=== PATIENT | female | born 1965 | race Caucasian/White ===

== ENCOUNTER 2016-12-05 18:28 | Emergency (ER) | payer SELFPAY ==
[~2016-12-05] VITALS: Ht 167.6 cm; Wt 71.2 kg
--- NOTE | 2016-12-05 19:41 | PHYS DOC ---
Past Medical History Past Medical History: No Pertinent History Past Surgical History: Cholecystectomy, Alcohol Use: None Drug Use: None Adult General Chief Complaint Chief Complaint: MEDICATION REFILL [facility] Patient is a 51 year old female who presents with dizziness and paresthesias that were gradual in onset. She is about to run out of venlafaxine, so she is taking it and half doses or every other day for the past week or so. States she has not been able to see her primary care doctor due to insufficient funds to pay the co-pay for the clinic visit. She thinks she will be open see her doctor within the next week. She denies headache, vision changes, diplopia, chest pain , dyspnea, fever or chills, nausea or vomiting, diarrhea, dysuria, numbness, weakness. Review of Systems Review of Systems Constitutional: Denies fever or chills [] Eyes: Denies change in visual acuity, redness, or eye pain [] HENT: Denies nasal congestion or sore throat [] Respiratory: Denies cough or shortness of breath [] Cardiovascular: No additional information not addressed in HPI [] GI: Denies abdominal pain, nausea, vomiting, bloody stools or diarrhea [] : Denies dysuria or hematuria [] Musculoskeletal: Denies back pain or joint pain [] Integument: Denies rash or skin lesions [] Neurologic: Denies headache, focal weakness or sensory changes [] Endocrine: Denies polyuria or polydipsia [] Allergies Allergies Allergies Coded Allergies Type Severity Reaction Last Updated Verified No Known Drug Allergies 11/12/14 No Physical Exam Physical Exam Constitutional: Well developed, well nourished, no acute distress, non-toxic appearance. [] HENT: Normocephalic, atraumatic, bilateral external ears normal, oropharynx moist, no oral exudates, nose normal. [] Eyes: PERRLA, EOMI. [] Neck: Normal range of motion, supple. [] Cardiovascular:Heart rate regular rhythm [] Lungs & Thorax: Bilateral breath sounds clear to auscultation [] Abdomen: Bowel sounds normal, soft, no tenderness. [] Skin: Warm, dry, no erythema, no rash. [] Back: Normal range of motion. [] Extremities: No tenderness, ROM intact, no edema. [] Neurologic: Alert and oriented X 3, normal motor function, normal sensory function, no focal deficits noted, cranial nerves II through XII intact. [] Psychologic: Affect normal, judgement normal, mood normal. [] Current Patient Data Vital Signs Vital Signs Date Time Temp Pulse Resp B/P (MAP) Pulse Ox O2 Delivery O2 Flow Rate FiO2 12/05/16 20:10 96 16 111/72 (85) 95 Room Air 12/05/16 19:20 98.4 98.4 Course & Med Decision Making Course & Med Decision Making Pertinent Labs and Imaging studies reviewed. (See chart for details) Suspect withdrawal from SNRI. Prescription for Venlafaxine 100 mg twice a day for 14 tablets (7days) given. Encouraged her to follow-up with her primary care doctor for his. Return precautions given. She understands and agrees with plan. Dragon Disclaimer Dragon Disclaimer This electronic medical record was generated, in whole or in part, using a voice recognition dictation system. Departure Departure Impression: Primary Impression: Dizziness Disposition: 01 HOME, SELF-CARE Condition: STABLE Referrals: LOWELL LIU DO (PCP) Patient Instructions: Dizziness, [id number] Additional Instructions: Take venlafaxine as prescribed. Follow up with your primary care doctor within 1 week. Return for any concerns. Canelo GREEN MD Dec 05, 2016 19:41
[2016-12-05 20:10] VITALS: BP 111/72
== END 2016-12-05 20:10 | disposition home or self-care (01) ==
LOC: ER 18:28
DX: R42 Dizziness and giddiness (principal); R20.0 Anesthesia of skin; Z76.0 Encounter for issue of repeat prescription; Z90.49 Acquired absence of other specified parts of digestive tract
CPT/HCPCS: 99283

== ENCOUNTER 2017-06-29 13:05 | Emergency (ER) | payer SELFPAY ==
[2017-06-29] MEDS: IBUPROFEN 600 MG TABLET. PO (13:42)
== END 2017-06-29 14:26 | disposition home or self-care (01) ==
LOC: ER 13:05
DX: S93.602A Unspecified sprain of left foot, initial encounter (principal); F12.10 Cannabis abuse, uncomplicated; X50.1XXA Overexertion from prolonged static or awkward postures, initial encounter; Y93.01 Activity, walking, marching and hiking; Y99.8 Other external cause status; Y92.89 Other specified places as the place of occurrence of the external cause
CPT/HCPCS: 73630; 99284-25

== ENCOUNTER 2017-08-28 14:43 | Emergency (ER) | payer SELFPAY ==
[2017-08-28 15:56] LABS: INFLUENZA A PATIENT NEGATIVE (NEGATIVE); INFLUENZA B PATIENT NEGATIVE (NEGATIVE); OBC FLU VALID
== END 2017-08-28 16:11 | disposition home or self-care (01) ==
LOC: ER 14:43
DX: B34.9 Viral infection, unspecified (principal); F32.9 Major depressive disorder, single episode, unspecified; F41.9 Anxiety disorder, unspecified; F12.10 Cannabis abuse, uncomplicated; Z90.49 Acquired absence of other specified parts of digestive tract
CPT/HCPCS: 71046; 87804; 87804-59; 99285-25

== ENCOUNTER 2018-12-07 23:02 | Emergency (ER) | payer SELFPAY ==
[~2018-12-07] VITALS: Ht 167.6 cm; Wt 59.0 kg
[~2018-12-07 23:02] MED LIST: BENZ100C PO; VENTOLIN HFA18 GM INH
[2018-12-07 23:10] VITALS: BP 109/61
[2018-12-08] MEDS ORDERED: DIPHTH,PERTUSS(ACELL),TET TOX 0.5 ML DISP.SYRIN. VAX IM ONE (00:30)
[2018-12-08] MEDS ORDERED: DICL50TA4 PO (01:00)
[2018-12-08] MEDS ORDERED: NAPROXEN 500 MG TABLET PO ONE (01:00)
[2018-12-08] MEDS ORDERED: HYDROcodone/APAP 5/325MG 1 TAB TABLET PO ONE (01:00)
--- NOTE | 2018-12-08 01:01 | PHYS DOC ---
Past Medical History Past Medical History: Anxiety, Depression, Other Additional Past Medical Histor: "SLEEP DISORDER" Past Surgical History: Cholecystectomy, , Tonsillectomy Alcohol Use: None Drug Use: Marijuana Adult General Chief Complaint Chief Complaint: MECHANICAL FALL HPI HPI Patient is a 53 year old female who presents to the ED today complaining of 8 out of 10 right knee and right ankle pain that began today after she fell down 2 steps. Patient denies any loss of consciousness, denies hitting her head on the ground. She describes the pain as throbbing and constant worse on range of motion. Review of Systems Review of Systems Constitutional: Denies fever or chills [] Musculoskeletal: Reports right ankle and right knee pain. Integument: Denies rash or skin lesions [] Neurologic: Denies headache, focal weakness or sensory changes [] All other systems were reviewed and found to be within normal limits, except as documented in this note. Current Medications Current Medications Current Medications Medications (Trade) Dose Ordered Sig/Raquel Start Time Stop Time Status Last Admin Dose Admin Acetaminophen/ Hydrocodone Bitart (Lortab 5/325) 2 tab 1X ONCE 12/08/18 01:00 12/08/18 01:01 Diphtheria/ Tetanus/Acell Pertussis (Boostrix) 0.5 ml ONCE ONCE 12/08/18 00:30 12/08/18 00:31 DC Naproxen (Naprosyn) 500 mg 1X ONCE 12/08/18 01:00 12/08/18 01:01 Allergies Allergies Allergies Coded Allergies Type Severity Reaction Last Updated Verified No Known Drug Allergies 11/12/14 No Physical Exam Physical Exam Constitutional: Well developed, well nourished, no acute distress, non-toxic appearance. [] Skin: Warm, dry, no erythema, no rash. [] Back: No tenderness, no CVA tenderness. [] Extremities: Superficial abrasions noted on the right anterior knee and right lateral ankle. Tenderness on palpation of the right lateral ankle on the right anterior knee. Full range of motion to the right ankle and knee. +2 right pedal pulse. Cap refill less than 2 seconds the right toes. Neurologic: Alert and oriented X 3, normal motor function, normal sensory function, no focal deficits noted. [] Psychologic: Affect normal, judgement normal, mood normal. [] Current Patient Data Vital Signs Vital Signs Date Time Temp Pulse Resp B/P (MAP) Pulse Ox O2 Delivery O2 Flow Rate FiO2 12/07/18 23:10 98.0 81 18 109/61 (77) 98 Room Air 98.0 EKG EKG [] Radiology/Procedures Radiology/Procedures [] Course & Med Decision Making Course & Med Decision Making Pertinent Labs and Imaging studies reviewed. (See chart for details) This is a 53-year-old female patient presenting to the ED today with right ankle and right knee pain status post falling. No loss of consciousness. Right knee and right ankle x-rays interpreted by Dr. Albrecht negative for any acute findings. Tetanus was updated. George bandage including nonstick dressing applied to the ankle and the knee. Wound care instructions and return precautions provided. Discharged with diclofenac. Follow-up with orthopedic doctor in 1-2 weeks. Dragon Disclaimer Dragon Disclaimer This electronic medical record was generated, in whole or in part, using a voice recognition dictation system. Departure Departure Impression: Primary Impression: Fall down steps Additional Impressions: Right ankle sprain Contusion of right knee Disposition: HOME, SELF-CARE Condition: STABLE Referrals: NO PCP (PCP) MARGY TEMPLE MD Follow-up in 1-2 weeks Patient Instructions: Ankle Sprain, Contusions-SportsMed Additional Instructions: You were evaluated in the emergency room for right ankle sprain and right knee contusion. Ice and elevate the affected extremities. Apply Neosporin to the abrasions on your knee in the ankle. Take the prescribed medications as needed for pain. Follow-up with your own doctor the provided orthopedic doctor in 1-2 weeks. Scripts Diclofenac Sodium (DICLOFENAC SODIUM) 50 Mg Tablet.dr 1 TAB PO BID, #20 TAB 1 Refill Prov: AKILA LOZANO GOLDSMITH APPRENTICE 12/08/18 Problem Qualifiers Primary Impression: Fall down steps Encounter type: initial encounter Qualified Codes: W10.8XXA - Fall (on) (from) other stairs and steps, initial encounter Additional Impressions: Right ankle sprain Encounter type: initial encounter Involved ligament of ankle: unspecified ligament Qualified Codes: S93.401A - Sprain of unspecified ligament of right ankle, initial encounter Contusion of right knee Encounter type: initial encounter Qualified Codes: S80.01XA - Contusion of right knee, initial encounter AKILA LOZANO GOLDSMITH APPRENTICE Dec 08, 2018 01:01
--- NOTE | 2018-12-08 03:45 | RAD ---
Right knee 4 views: Reason for examination: Fell with pain. No acute fracture or dislocation is seen. The bone density is normal. No abnormal periosteal reaction is seen. There is no joint effusion seen. Note is made of some mild degenerative change. IMPRESSION: Mild degenerative changes but no acute bony abnormality at the right knee. Right ankle 3 views: No fracture or dislocation is seen. The bone density is normal. No abnormal periosteal reaction is seen. Joint spaces are maintained. IMPRESSION: No acute bony abnormality at the right ankle. Electronically signed by: Carina Sauceda MD (12/08/2018 3:42 AM) [facility]
== END 2018-12-08 01:17 | disposition home or self-care (01) ==
LOC: ER 23:02
DX: S93.491A Sprain of other ligament of right ankle, initial encounter (principal); S80.01XA Contusion of right knee, initial encounter; F41.9 Anxiety disorder, unspecified; F32.9 Major depressive disorder, single episode, unspecified; Z90.49 Acquired absence of other specified parts of digestive tract; Z90.89 Acquired absence of other organs; Z98.890 Other specified postprocedural states; W10.9XXA Fall (on) (from) unspecified stairs and steps, initial encounter; Y93.89 Activity, other specified; Y92.89 Other specified places as the place of occurrence of the external cause; Y99.8 Other external cause status
CPT/HCPCS: 73564; 73610; 90471; 90715; 99284